=== PATIENT | female | born 1955 | race Two or more races ===

== ENCOUNTER 2019-02-20 01:03 | Inpatient (IN) | payer MEDICARE ==
[2019-02-20] VITALS (39 sets, daily range): BP systolic 84–112; BP diastolic 47–69
[~2019-02-20] VITALS: Ht 157.5 cm; Wt 84.6 kg
--- OUTSIDE RECORDS SUMMARY | 2019-02-20 01:05 | XMS REPORT ---
Author Author [facility] Address Unknown Phone Unavailable Care Team Providers Care Leave Specialist Name Role Phone Hal RYDER Unavailable Unavailable Problems This patient has no known problems. Allergies, Adverse Reactions, Alerts This patient has no known allergies or adverse reactions. Medications This patient has no known medications. Results Test Description Test Time Test Comments Text Results Atomic Results Result Comments CT ABDOMEN/PELVIS W [place] [address] Patient Name: BELIA BOONE MR #: [id number] : 1955 Age/Sex: 61/F Req #: [id number] Adm Physician: Ordered by: JEN RYDER MD Report #: [id number] Location: CT Room/Bed: Procedure: [id number] CT/CT ABDOMEN/PELVIS W Exam Date: 10/12/17 Exam Time: 1320 REPORT STATUS: Signed PROCEDURE: CT ABDOMEN AND PELVIS WITH CONTRAST TECHNIQUE: The abdomen and pelvis were scanned utilizing a multidetector helical scanner from the diaphragm to the lesser trochanter after the IV administration of 100 cc of Isovue 370 and the oral administration of Gastrografin. Coronal and sagittal multiplanar reformations were obtained. COMPARISON: None. INDICATIONS: ABDOMEN PAIN FINDINGS: LOWER THORAX: Subsegmental atelectasis in the dependent portions of the lower lobes. No pleural or pericardial effusion. HEPATOBILIARY: Subcentimeter hypoattenuating lesion in segment 8, too small to further characterize though likely to represent a small cyst. No additional focal hepatic lesions. Hepatic parenchyma is diffusely hypoattenuating compatible with steatosis. SPLEEN: No splen omegaly. Subcentimeter hyperattenuating lesion in the lower pole of the spleen may represent a flash filling hemangioma. PANCREAS: No focal masses or ductal dilatation. ADRENALS: No adrenal nodules. KIDNEYS/URETERS: No hydronephrosis, stones, or solid mass lesions. PELVIC ORGANS/BLADDER: Urinary bladder is incompletely distended but otherwise unremarkable. Uterus is anteflexed and appears normal. No adnexal mass. PERITONEUM / RETROPERITONEUM: No free air or fluid. LYMPH NODES: No pelvic sidewall, retroperitoneal, or mesenteric lymphadenopathy. VESSELS: The abdominal aorta, major branch vessels, and iliac arterial systems are patent with minimal atherosclerotic calcification along the infrarenal abdominal aorta. No aneurysmal dilatation. Incidental note of [id number] origins of the common hepatic artery and splenic artery from the abdominal aorta. The splenic artery gives rise to the left gastric artery.. Hepatic arterial anatomy is otherwise conventional. 2 renal arteries supply each kidney. Portal vein, splenic vein, and central superior mesenteric vein are patent. GI TRACT: The large bowel shows no evidence of distention or wall thickening. The sigmoid colon is markedly redundant. The appendix is normal. No right lower quadrant inflammatory change. Postsurgical changes in the proximal stomach likely related to sleeve gastrectomy. There is no small bowel dilatation to suggest obstruction. BONES AND SOFT TISSUES: No focal soft tissue abnormalities. No osseous destructive lesions. Postsurgical changes related to L4-L5 disc replacement and anterior fusion. Multilevel degenerative disc changes elsewhere within the lumbar spine. Very small (7 mm transverse neck) fat-containing umbilical hernia seen on series 2 image 42. IMPRESSION: No acute intra-abdominal or pelvic CT abnormalities. Very small (7 mm) fat-containing umbilical hernia. Hepatic steatosis. Dictated by: Lillian Carreno M.D. on 10/12/2017 at 14:20 Electronically approved by: Lillian Carreno M.D. on 10/12/2017 at 14:20 Dictated By: LILLIAN CARRENO MD 1420 Transcribed By: TRACIE on 10/12/17 1420 COPY TO: JEN RYDER MD
--- OUTSIDE RECORDS SUMMARY | 2019-02-20 01:05 | XMS REPORT | Clinical Summary ---
Author Author [facility] Address Unknown Phone Unavailable Care Team Providers Care Manufacturing Production Manager Name Role Phone Soheila Ingram MD PCP Allergies No Known Allergies Medications End Date Status Medication Sig Dispensed Refills Start Date Active buPROPion SR (WELLBUTRIN TK 1 T PO QAM 0 SR) 100 MG 12 hr tablet 8 Active ergocalciferol (VITAMIN TK 1 C PO 1 D2) 50,000 unit capsule WEEKLY 8 Active FLUoxetine (PROzac) 20 MG TK 1 T PO QD 0 tablet 8 Active sulfamethoxazole-trimetho TK 1 T PO BID 0 prim (BACTRIM DS) 800-160 8 mg per tablet Active thiothixene (NAVANE) 1 MG TK 3 CS PO QD 0 capsule 8 Active ARMOUR THYROID 60 mg TK 1 T PO QD 1 tablet 8 Active triamterene-hydrochloroth TK 1 C PO IN 1 iazid (DYAZIDE) 37.5-25 THE MORNING 8 mg per capsule 09/08/2018 oseltamivir (TAMIFLU) 75 Take 1 10 capsule 0 MG capsule capsule (75 8 mg total) by mouth every 12 (twelve) hours for 5 days. 10/03/2018 ondansetron ODT (ZOFRAN Take 1 tablet 12 tablet 0 ODT) 4 MG disintegrating (4 mg total) 8 tablet by mouth every 8 (eight) hours as needed for nausea for up to 30 days. 09/08/2018 acetaminophen-codeine Take 1-2 14 tablet 0 (TYLENOL WITH CODEINE #3) tablets by 8 300-30 mg per tablet mouth every 6 (six) hours as needed for mild pain or moderate pain for up to 5 days. Active Problems Not on file Encounters Care Team Description Date Type Specialty Soheila Ingram MD Essential hypertension, malignant; Droopy eyelid, left 01/06/2019 Hospital Procedural Cardiology Encounter Soheila Ingram MD Essential hypertension, malignant (Primary Dx); Droopy eyelid, left 01/05/2019 Transcribe Access Orders Aman Andrew MD Influenza (Primary Dx); Abdominal pain, unspecified abdominal location 09/03/2018 Emergency Emergency Medicine Soheila Ingram MD Breast cancer screening 08/02/2018 Hospital Radiology Encounter Soheila Ingram MD Breast cancer screening (Primary Dx) 07/06/2018 Transcribe Access Orders after 02/19/2018 Social History Date Tobacco Use Types Packs/Day Years Used Never Smoker Smokeless Tobacco: Never Used Alcohol Use Drinks/Week oz/Week Comments Yes 1 Glasses of 0.6 socially wine Sex Assigned at Date Recorded Not on file Industry Job Start Date Occupation Not on file Not on file Not on file Travel End Travel History Travel Start No recent travel history available. Last Filed Vital Signs Time Taken Vital Sign Reading 09/03/2018 4:00 PM CDT Blood Pressure 116/67 09/03/2018 3:30 PM CDT Pulse 104 09/03/2018 4:00 PM CDT Temperature 37.1 C (98.7 F) 09/03/2018 1:22 PM CDT Respiratory Rate 16 09/03/2018 4:00 PM CDT Oxygen Saturation 95% - Inhaled Oxygen - Concentration 09/03/2018 1:22 PM CDT Weight 69.9 kg (154 lb) 09/03/2018 1:22 PM CDT Height 157.5 cm (5' 2") 09/03/2018 1:22 PM CDT Body Mass Index 28.17 Plan of Treatment Health Maintenance Due Date Last Done Comments CERVICAL CANCER SCREENING 1977 COLON CANCER SCREENING 2006 SHINGLES VACCINES (#1) 2006 INFLUENZA VACCINE 06/08/2019 BREAST CANCER SCREENING 08/02/2020 08/02/2018, 07/28/2017, 07/06/2016 Procedures Comments Procedure Name Priority Date/Time Associated Diagnosis US CAROTID DUPLEX Routine 01/06/2019 Essential hypertension, BILATERAL 2:54 PM 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 malignant Droopy eyelid, left CT ABDOMEN PELVIS W STAT 09/03/2018 CONTRAST 3:20 PM CDT XR CHEST 1 VW PORTABLE STAT 09/03/2018 2:41 PM CDT ECG 12-LEAD STAT 09/03/2018 2:15 PM CDT LIPASE LEVEL STAT 09/03/2018 2:00 PM CDT TROPONIN STAT 09/03/2018 2:00 PM CDT CREATINE KINASE, TOTAL STAT 09/03/2018 (CPK) 2:00 PM CDT ESTIMATED GFR STAT 09/03/2018 2:00 PM CDT URINALYSIS SCREEN AND STAT 09/03/2018 MICROSCOPY, WITH REFLEX 2:00 PM CDT TO CULTURE COMPREHENSIVE METABOLIC STAT 09/03/2018 PANEL 2:00 PM CDT HC COMPLETE BLD COUNT STAT 09/03/2018 W/AUTO DIFF 2:00 PM CDT INFLUENZA ANTIGEN Routine 09/03/2018 2:00 PM CDT ECG ED PRELIMINARY Routine 09/03/2018 INTERPRETATION 1:28 PM CDT MAMMO BREAST SCREEN Routine 08/02/2018 Breast cancer screening TOMOSYNTHESIS BILATERAL 1:14 PM CDT after 02/19/2018 Results * Us carotid duplex (01/06/2019 2:54 PM HUMAN 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) L CCA Prox 27.3 cm/s cm/s [facility] L CCA Prox 119.4 cm/s cm/s [facility] R CCA Mid 18.60 cm/s cm/s [facility] R CCA Mid 59.20 cm/s cm/s [facility] L CCA Mid 27.30 cm/s cm/s [facility] L CCA Mid 70.90 cm/s cm/s [facility] L ECA Prox 13.10 cm/s cm/s [facility] L ECA Prox 53.7 cm/s cm/s [facility] R ECA Prox 14.20 cm/s cm/s [facility] L ICA Prox 21.7 cm/s cm/s [facility] L ICA Prox 54 cm/s cm/s [facility] R ICA Prox 24.1 cm/s cm/s [facility] R ICA Prox 58.1 cm/s cm/s [facility] L ICA/CCA Ratio 0.5 cm/s [facility] R ICA/CCA Ratio 0.8 cm/s [facility] L CCA Max 119.40 cm/s cm/s [facility] R CCA Max 76.80 cm/s cm/s [facility] L ICA Max 60.40 cm/s cm/s [facility] R ICA Max 60.50 cm/s cm/s [facility] R CCA Prox 19.4 cm/s cm/s [facility] R CCA Prox 76.8 cm/s cm/s [facility] R ICA Dist 20.9 cm/s cm/s [facility] R ICA Mid 24.8 cm/s cm/s [facility] L ICA Dist 19.1 cm/s cm/s [facility] L ICA DIST 46.9 cm/s cm/s [facility] R CCA Dist 28.5 cm/s cm/s [facility] R CCA Dist 69.1 cm/s cm/s [facility] R Vert Art 21.70 cm/s cm/s [facility] L CCA Dist 24.1 cm/s cm/s [facility] L CCA Dist 57 cm/s cm/s [facility] R ECA Prox 59.20 cm/s cm/s [facility] L ICA Mid 28.2 cm/s cm/s [facility] L ICA Mid 60.4 cm/s cm/s [facility] R ICA Dist 49.2 cm/s cm/s [facility] R ICA Mid 60.5 cm/s cm/s [facility] L Vert Art 10.90 cm/s cm/s [facility] L Vert Art 30.2 cm/s cm/s [facility] R Vert Art 48.80 cm/s cm/s [facility] Narrative Performed At [facility] There is minimal atheromatous plaque in the right carotid bulb associated with less than 50% stenosis. There is minimal atheromatous plaque in the left carotid bulb associated with less than 50% stenosis. Performing Organization Address City/State/Zipcode Phone Number JOSE DAVID [address] [place] [address] * CT Abdomen Pelvis W Contrast (09/03/2018 3:20 PM CDT) Narrative Performed At EXAMINATION: RADIANT CT ABDOMEN PELVIS W CONTRAST CLINICAL HISTORY: abd painplease use bariatric protocol TECHNIQUE: An emergency study was performed at [address] images were acquired using low-dose technique with iterative reconstructions and/or automatic exposure control to reduce radiation dose. Scans were obtained of the abdomen and pelvis with intravenous and oral contrast enhancement. Sagittal and coronal computerized reformatted images were also obtained. COMPARISON: None. ABDOMEN: Postoperative changes from anterior fusion at L4-5 are seen. Endplate sclerosis at this level is noted. A vacuum disc with disc space narrowing and osteophytosis is at L5-S1.Visualized portions of the chest are normal. The heart is normal in size. The liver, spleen, pancreas, gallbladder and biliary ducts are normal.The adrenal glands and kidneys are normal. The abdominal aorta and inferior vena cava are normal. There is no retroperitoneal adenopathy.Postoperative changes from sleeve gastrectomy are seen.Small bowel is not dilated.The appendix is not discretely identified. A moderate amount of stool is in the colon. A few scattered diverticula are in the distal colon. PELVIS: The bladder is mostly collapsed.The uterus and adnexal regions are normal.No fluid collections or masses are seen. IMPRESSION: Nonvisualization of the appendix which renders this study indeterminate for appendicitis. There are no secondary signs of appendicitis. Possible constipation. Diverticulosis without diverticulitis. Status post sleeve gastrectomy. [facility]-[id number] Procedure Note Interface, Radiology Results Incoming - 09/03/2018 3:53 PM CDT EXAMINATION: CT ABDOMEN PELVIS W CONTRAST CLINICAL HISTORY: abd pain please use bariatric protocol TECHNIQUE: An emergency study was performed at [address] images were acquired using low-dose technique with iterative reconstructions and/or automatic exposure control to reduce radiation dose. Scans were obtained of the abdomen and pelvis with intravenous and oral contrast enhancement. Sagittal and coronal computerized reformatted images were also obtained. COMPARISON: None. ABDOMEN: Postoperative changes from anterior fusion at L4-5 are seen. Endplate sclerosis at this level is noted. A vacuum disc with disc space narrowing and osteophytosis is at L5-S1. Visualized portions of the chest are normal. The heart is normal in size. The liver, spleen, pancreas, gallbladder and biliary ducts are normal. The adrenal glands and kidneys are normal. The abdominal aorta and inferior vena cava are normal. There is no retroperitoneal adenopathy. Postoperative changes from sleeve gastrectomy are seen. Small bowel is not dilated. The appendix is not discretely identified. A moderate amount of stool is in the colon. A few scattered diverticula are in the distal colon. PELVIS: The bladder is mostly collapsed. The uterus and adnexal regions are normal. No fluid collections or masses are seen. IMPRESSION: Nonvisualization of the appendix which renders this study indeterminate for appendicitis. There are no secondary signs of appendicitis. Possible constipation. Diverticulosis without diverticulitis. Status post sleeve gastrectomy. [id number] Performing Organization Address [facility] Phone Number [employer] [address] [place] [address] * XR Chest 1 Vw Portable (09/03/2018 2:41 PM CDT) Narrative Performed At EXAMINATION:XR CHEST 1 VW PORTABLE [facility] CLINICAL HISTORY:fever COMPARISON:None IMPRESSION: Unremarkable single view chest The lungs are clear. The heart is not enlarged. The bony structures are within normal limits. [id number] Procedure Note Hm Interface, Radiology Results Incoming - 09/03/2018 2:47 PM CDT EXAMINATION: XR CHEST 1 VW PORTABLE CLINICAL HISTORY: fever COMPARISON: None IMPRESSION: Unremarkable single view chest The lungs are clear. The heart is not enlarged. The bony structures are within normal limits. [id number] Performing Organization Address [facility] Phone Number [employer] [address] [place] [address] * ECG 12 lead (09/03/2018 2:15 PM CDT) Ventricular rate 93 [facility] Atrial rate 93 [facility] IN interval 114 [facility] QRSD interval 80 [facility] QT interval 338 [facility] QTC interval 420 [facility] P axis 1 43 [facility] QRS axis 1 53 [facility] T wave axis 69 [facility] EKG impression Normal sinus [facility] MUSE rhythm-Nonspecific ST and T wave abnormality-Abnormal ECG-No previous ECGs available- Performing Organization Address City/State/Zipcode Phone Number [facility] [address] [place] [address] * Urinalysis screen and microscopy, with reflex to culture (09/03/2018 2:00 PM CDT) Specimen site Clean catch [facility] DEPARTMENT OF PATHOLOGY AND GENOMIC MEDICINE Color, UA Klaudia [facility] DEPARTMENT OF PATHOLOGY AND GENOMIC MEDICINE Appearance, UA Clear [facility] DEPARTMENT OF PATHOLOGY AND GENOMIC MEDICINE Specific gravity, UA 1.030 1.001 - 1.035 [facility] DEPARTMENT OF PATHOLOGY AND GENOMIC MEDICINE pH, UA 6.0 5.0 - 8.5 [facility] DEPARTMENT OF PATHOLOGY AND GENOMIC MEDICINE Protein, UA 1+ (A) Negative [facility] DEPARTMENT OF PATHOLOGY AND GENOMIC MEDICINE Glucose, UA Negative Negative [facility] DEPARTMENT OF PATHOLOGY AND GENOMIC MEDICINE Ketones, UA Negative Negative [facility] DEPARTMENT OF PATHOLOGY AND GENOMIC MEDICINE Bilirubin, UA Negative Negative [facility] DEPARTMENT OF PATHOLOGY AND GENOMIC MEDICINE Blood, UA Negative Negative [facility] DEPARTMENT OF PATHOLOGY AND GENOMIC MEDICINE Nitrite, UA Negative Negative [facility] DEPARTMENT OF PATHOLOGY AND GENOMIC MEDICINE Urobilinogen, UA 4.0 (A) <2.0 [facility] DEPARTMENT OF PATHOLOGY AND GENOMIC MEDICINE Leukocyte esterase, UA Negative Negative [facility] DEPARTMENT OF PATHOLOGY AND GENOMIC MEDICINE Epithelial cells, UA Many /HPF [facility] DEPARTMENT OF PATHOLOGY AND GENOMIC MEDICINE Round epithelial cells, Few 0 - 1 /HPF [facility] DEPARTMENT OF UA PATHOLOGY AND GENOMIC MEDICINE WBC, UA 0-5 0 - 4 /HPF [facility] DEPARTMENT OF PATHOLOGY AND GENOMIC MEDICINE RBC, UA 11-20 (H) 0 - 5 /HPF [facility] DEPARTMENT OF PATHOLOGY AND GENOMIC MEDICINE Bacteria, UA Trace None seen [facility] DEPARTMENT OF PATHOLOGY AND GENOMIC MEDICINE Yeast, UA None seen [facility] DEPARTMENT OF PATHOLOGY AND GENOMIC MEDICINE Yeast with pseudohyphae, None seen [facility] PATHOLOGY AND GENOMIC MEDICINE Hyaline casts, UA 6-10 /LPF [facility] DEPARTMENT OF PATHOLOGY AND GENOMIC MEDICINE Specimen Urine Performing Organization Address City/State/Zipcode Phone Number [address] [place] [address] PATHOLOGY AND GENOMIC MEDICINE * Estimated GFR (09/03/2018 2:00 PM CDT) Estimated GFR 79 mL/min/1.73 m2 [facility] DEPARTMENT OF Comment: PATHOLOGY AND [employer] GENOMIC MEDICINE rpretation G1 >=90 Normal or high G2 60-89Mildly decreased [id number] Mildly to moderately decreased [id number] Moderately to severely decreased G4 15-29Severely decreased G5 <15Kidney failure The eGFR was calculated using the Chronic Kidney Disease Epidemiology Collaboration (CKD-EPI) equation. Interpretation is based on recommendations of the National Kidney Foundation-Kidney Disease Outcomes Quality Initiative (NKF-KDOQI) published in 2014. Specimen Plasma specimen Performing Organization Address [facility] Phone Number [address] [place] [address] PATHOLOGY AND [employer] MEDICINE * Troponin (09/03/2018 2:00 PM CDT) Troponin <0.300 0.000 - 0.300 ng/mL [facility] DEPARTMENT OF Comment: PATHOLOGY AND 0.30 - 1.49 GENOMIC MEDICINE ng/mlMay indicate increased risk of acute coronary syndrome. >=1.5 ng/ml Consistent with acute myocardial infarction. The diagnostic value of a single normal or non-diagnostic result is questionable.Serial samples at 2-6 hour intervals are required to rule out acute myocardial injury. Specimen Plasma specimen Performing Organization Address City/[facility] Phone Number [address] [place] [phone] PATHOLOGY AND GENOMIC MEDICINE * CBC with platelet and differential (09/03/2018 2:00 PM CDT) WBC 6.60 4.50 - 11.00 k/uL [facility] DEPARTMENT OF PATHOLOGY AND GENOMIC MEDICINE RBC 4.44 4.20 - 5.50 m/uL [facility] DEPARTMENT OF PATHOLOGY AND GENOMIC MEDICINE HGB 12.4 12.0 - 16.0 g/dL [facility] DEPARTMENT OF PATHOLOGY AND GENOMIC MEDICINE HCT 37.6 37.0 - 47.0 % [facility] DEPARTMENT OF PATHOLOGY AND GENOMIC MEDICINE MCV 84.7 82.0 - 100.0 fL [facility] DEPARTMENT OF PATHOLOGY AND GENOMIC MEDICINE MCH 27.9 27.0 - 34.0 pg [facility] DEPARTMENT OF PATHOLOGY AND GENOMIC MEDICINE MCHC 33.0 31.0 - 37.0 g/dL [facility] DEPARTMENT OF PATHOLOGY AND GENOMIC MEDICINE RDW - SD 44.0 37.0 - 55.0 fL [facility] DEPARTMENT OF PATHOLOGY AND GENOMIC MEDICINE MPV 11.5 8.8 - 13.2 fL [facility] DEPARTMENT OF PATHOLOGY AND GENOMIC MEDICINE Platelet count 179 150 - 400 k/uL [facility] DEPARTMENT OF PATHOLOGY AND GENOMIC MEDICINE Nucleated RBC 0.00 /100 WBC [facility] DEPARTMENT OF PATHOLOGY AND GENOMIC MEDICINE Neutrophils 73.6 (H) 39.0 - 69.0 % [facility] DEPARTMENT OF PATHOLOGY AND GENOMIC MEDICINE Lymphocytes 13.9 (L) 25.0 - 45.0 % [facility] DEPARTMENT OF PATHOLOGY AND GENOMIC MEDICINE Monocytes 5.9 0.0 - 10.0 % [facility] DEPARTMENT OF PATHOLOGY AND GENOMIC MEDICINE Eosinophils 4.8 0.0 - 5.0 % [facility] DEPARTMENT OF PATHOLOGY AND GENOMIC MEDICINE Basophils 0.0 0.0 - 1.0 % [facility] DEPARTMENT OF PATHOLOGY AND GENOMIC MEDICINE Specimen Blood Performing Organization Address [facility] Phone Number [address] [place] [address] PATHOLOGY AND GENOMIC MEDICINE * Influenza antigen (09/03/2018 2:00 PM CDT) Influenza antigen Positive for Influenza A [facility] DEPARTMENT OF antigen. PATHOLOGY AND [id number] GENOMIC MEDICINE TO ROCHELLE LEIJA (A) Comment: Specimen Information Specimen Source: Nares Specimen Site: Right Specimen Nares - Right Performing Organization Address [facility] Phone Number [address] [place] [address] PATHOLOGY AND GENOMIC MEDICINE * Lipase level (09/03/2018 2:00 PM CDT) Lipase 32 13 - 60 U/L [facility] DEPARTMENT OF PATHOLOGY AND GENOMIC MEDICINE Specimen Plasma specimen Performing Organization Address [facility] Phone Number [address] [place] [address] PATHOLOGY AND GENOMIC MEDICINE * Creatine kinase, total (CPK) (09/03/2018 2:00 PM CDT) Creatine kinase 75 26 - 192 U/L [facility] DEPARTMENT OF PATHOLOGY AND GENOMIC MEDICINE Specimen Plasma specimen Performing Organization Address [facility] Phone Number [address] [place] [address] PATHOLOGY AND GENOMIC MEDICINE * Comprehensive metabolic panel (09/03/2018 2:00 PM CDT) Sodium 132 (L) 135 - 148 mEq/L [facility] DEPARTMENT OF PATHOLOGY AND GENOMIC MEDICINE Potassium 4.3 3.5 - 5.0 mEq/L [facility] DEPARTMENT OF PATHOLOGY AND GENOMIC MEDICINE Chloride 95 (L) 98 - 112 mEq/L [facility] DEPARTMENT OF PATHOLOGY AND GENOMIC MEDICINE CO2 23 (L) 24 - 31 mEq/L [facility] DEPARTMENT OF PATHOLOGY AND GENOMIC MEDICINE Anion gap 14@ANIO 7 - 15 mEq/L [facility] DEPARTMENT OF PATHOLOGY AND GENOMIC MEDICINE BUN 10 8 - 23 mg/dL [facility] DEPARTMENT OF PATHOLOGY AND GENOMIC MEDICINE Creatinine 0.80 0.50 - 0.90 mg/dL [facility] DEPARTMENT OF PATHOLOGY AND GENOMIC MEDICINE Glucose 91 65 - 99 mg/dL [facility] DEPARTMENT OF PATHOLOGY AND GENOMIC MEDICINE Calcium 9.0 8.8 - 10.2 mg/dL [facility] DEPARTMENT OF PATHOLOGY AND GENOMIC MEDICINE Protein 7.0 6.3 - 8.3 g/dL [facility] DEPARTMENT OF Comment: PATHOLOGY AND GENOMIC MEDICINE 4.6-7.0 g/dL 1 week 4.4-7.6 g/dL 7 months-1year 5.1-7.3 g/dL 1-2 years5.6-7 .5 g/dL >3 years6.0-8 .0 g/dL 18-150 6.3-8.3 g/dL Albumin 3.8 3.5 - 5.0 g/dL [facility] DEPARTMENT OF PATHOLOGY AND GENOMIC MEDICINE A/G ratio 1.2 0.7 - 3.8 [facility] DEPARTMENT OF PATHOLOGY AND GENOMIC MEDICINE Alkaline phosphatase 68 35 - 104 U/L [facility] DEPARTMENT OF PATHOLOGY AND GENOMIC MEDICINE AST 37 (H) 10 - 35 U/L [facility] DEPARTMENT OF PATHOLOGY AND GENOMIC MEDICINE ALT 28 5 - 50 U/L [facility] DEPARTMENT OF PATHOLOGY AND GENOMIC MEDICINE Total bilirubin 0.4 0.0 - 1.2 mg/dL [facility] DEPARTMENT OF PATHOLOGY AND GENOMIC MEDICINE Specimen Plasma specimen Performing Organization Address City/State/Zipcode Phone Number [facility] [address] [place] [address] PATHOLOGY AND GENOMIC MEDICINE * ECG ED Preliminary Interpretation - NOT AN ORDER (09/03/2018 1:28 PM CDT) Narrative Performed At Aman Andrew MD 09/04/20186:05 AM ECG ED Preliminary Interpretation - Not an Order Performed by: LILLIAN PORTER Authorized by: AMAN ANDREW ECG reviewed by ED Physician in the absence of a creative designer: yes Interpretation: Interpretation: normal Rate: ECG rate:93 ECG rate assessment: normal Rhythm: Rhythm: sinus rhythm Ectopy: Ectopy: none QRS: QRS axis:Normal QRS intervals:Normal Conduction: Conduction: normal ST segments: ST segments:Non-specific T waves: T waves: non-specific * Mammo Breast Screen Tomosynthesis Bilateral (08/02/2018 1:14 PM CDT) Narrative Performed At PROCEDURE: MAMMO BREAST SCREEN TOMOSYNTHESIS BILATERAL [facility] Computer aided detection was utilized for the interpretation of the digital bilateral screening mammography with tomosynthesis. COMPARISON: 07/28/2017-07/06/2016 CLINICAL HISTORY: Screening mammogram.The patient has no current breast complaints. DENSITY: The breast tissue is heterogeneously dense, which may obscure small masses. There is a benign-appearing calcification in the left breast. There are a few scattered benign-appearing coarse calcifications in the right breast. No new significant masses, calcifications, or other findings are seen in either breast. IMPRESSION:No mammographic evidence of malignancy. RECOMMENDATION: Comparison with physical exam and annual screening mammography. BI-RADS 2: BENIGN This facility is accredited by the [employer] for Mammography. A negative x-ray report should not delay biopsy if a dominant or clinically suspicious mass is present.Not all cancers are identified by x-ray. [id number] Performing Organization Address City/State/Zipcode Phone Number [facility] [address] [place] [address] after 02/19/2018 Insurance Payer Benefit Subscriber ID Type Phone Address Plan / Group [employer]NA MEDICARE HUMANA xxxxxxxxx PPO MEDICARE PPO/PFFS/[facility] Advance Directives Patient has advance care planning documents on file. For more information, davey estrada contact: Lito Seay [address] [place] [address]
[2019-02-20] MEDS ORDERED: ONDANSETRON HCL INJ 2MG/ML 2ML 2 MG/ML VIAL IV STA (01:30)
[2019-02-20] MEDS ORDERED: SODIUM CHLORIDE 0.9% 1000ML 1,000 ML IV STA ×3 (01:30→04:02)
[2019-02-20 01:58] LABS: BASOPHILS % 0.1 % (0.0-1.0); EOSINOPHILS % 0.1 % (0.0-6.0); HEMATOCRIT 41.5 % (34.2-44.1); HEMOGLOBIN 13.4 g/dL (12.0-16.0); LYMPHOCYTES # (AUTO) 0.9 (1.0-3.2); LYMPHOCYTES % 6.8 % (18.0-39.1); MEAN CORPUSCULAR HEMOGLOBIN 28.2 pg (28-32); MEAN CORPUSCULAR HGB CONC 32.3 g/dL (31-35); MEAN CORPUSCULAR VOLUME 87.2 fL (81-99); MONOCYTES # (AUTO) 0.1 (0.2-0.8); MONOCYTES % 0.6 % (4.4-11.3); NEUTROPHILS # (AUTO) 11.6 (2.1-6.9); NEUTROPHILS % 91.6 % (38.7-80.0); PLATELET COUNT 266 x10e3/uL (140-360); RED BLOOD COUNT 4.76 x10e6/uL (3.6-5.1); RED CELL DISTRIBUTION WIDTH 14.5 % (11.7-14.4)
[2019-02-20 02:07] LABS: CLARITY,URINE CLOUDY (CLEAR); COLOR,URINE YELLOW (YELLOW); LEUKOCYTE ESTERASE ,URINE 2+ (NEGATIVE)
[2019-02-20 02:08] LABS: BILIRUBIN,URINE NEGATIVE (NEGATIVE); KETONES,URINE NEGATIVE (NEGATIVE); NITRITE,URINE NEGATIVE (NEGATIVE); PROTEIN,URINE DIPSTICK NEGATIVE (NEGATIVE); URINE UROBILINOGEN 0.2 mg/dL (0.2 - 1)
[2019-02-20 02:12] LABS: INR 0.95; PARTIAL THROMBOPLASTIN TIME 26.8 seconds (23.8-35.5); PROTHROMBIN TIME 13.2 seconds (11.9-14.5)
[2019-02-20 02:17] LABS: BACTERIA,URINE MODERATE /HPF; EPITHELIAL CELLS,URINE FEW /LPF; WBC,URINE (MAN) >50 /HPF (0-5)
[2019-02-20 02:22] LABS: ALANINE AMINOTRANSFERASE 43 IU/L (0-55); ALBUMIN 3.5 g/dL (3.5-5.0); ALBUMIN/GLOBULIN RATIO 1.1 (0.8-2.0); ALKALINE PHOSPHATASE 71 IU/L (40-150); ANION GAP 13.9 mmol/L (8-16); CALCIUM 9.5 mg/dL (8.4-10.2); CARBON DIOXIDE 27 mmol/L (22-29); CHLORIDE 104 mmol/L (98-107); CREATINE KINASE 44 IU/L (29-168); CREATININE, SERUM 0.83 mg/dL (0.57-1.11); EST GLOMERULAR FILTRATION RATE > 60 ML/MIN (60-); GLUCOSE 107 mg/dL (74-118); MAGNESIUM 2.2 MG/DL (1.3-2.1); SODIUM 142 mmol/L (136-145)
[2019-02-20 02:26] LABS: POTASSIUM 2.9 mmol/L (3.5-5.1)
--- NOTE | 2019-02-20 02:28 | NUR ---
AND RN NOTIFIED OF CRITICAL LAB VALUE, POTASSIUM 2.9.
[2019-02-20 02:42] LABS: BLOOD UREA NITROGEN 20 mg/dL (7-26); BUN/CREATININE RATIO 24 (6-25)
[2019-02-20] MEDS ORDERED: VANCOMYCIN 1GM/NS 250 ML 250 ML IV ONE (02:45)
[2019-02-20] MEDS ORDERED: MEROPENEM 1GRAM 1 GM in SODIUM CHLORIDE 0.9% 100 ML 100 ML IV SCH (03:00)
[2019-02-20] MEDS: POTASSIUM CHLORIDE 10MEQ/100ML 100 ML IV SCH ×4 (03:03→05:45)
[2019-02-20] MEDS ORDERED: HYDROCORTISONE SOD SUCCINATE 100 MG VIAL IV ONE (03:15)
[2019-02-20 03:33] LABS: INFLUENZAE A&B ANTIGEN (RAPID) NEGATIVE (NEGATIVE); STREPTOCOCCUS GRP A ANTIGEN NEGATIVE (NEGATIVE)
[2019-02-20] MEDS ORDERED: ONDANSETRON HCL INJ 2MG/ML 2ML 2 MG/ML VIAL IV PRN (04:00)
--- OUTSIDE RECORDS SUMMARY | 2019-02-20 04:11 | XMS REPORT | Clinical Summary ---
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 Status post sleeve gastrectomy. [facility]-[id number] Procedure Note Interface, Radiology Results Incoming - [...] Diverticulosis without diverticulitis. Status post sleeve gastrectomy. [id number] Performing Organization Address [facility] Phone Number [employer] [address] [place] [address] * XR Chest 1 Vw Portable (09/03/2018 2:41 PM CDT) Narrative Performed At EXAMINATION:XR CHEST 1 VW PORTABLE RADIANT CLINICAL HISTORY:fever COMPARISON:None IMPRESSION: Unremarkable single view chest The lungs are clear. The heart is not enlarged. The bony structures are within normal limits. [id number] Procedure Note Hm Interface, Radiology Results Incoming - 09/03/2018 2:47 PM CDT EXAMINATION: XR CHEST 1 VW PORTABLE CLINICAL HISTORY: fever COMPARISON: None IMPRESSION: Unremarkable single view chest The lungs are clear. The heart is not enlarged. The bony structures are within normal limits. [facility][id number] Performing Organization Address [facility] Phone Number [employer] [address] [place] [address] * ECG 12 lead (09/03/2018 2:15 PM CDT) Ventricular rate 93 [facility]USE Atrial rate 93 [facility] M[facility] OH interval 114 [facility] QRSD interval 80 [facility] QT interval 338 [facility] QTC interval 420 [facility] P axis 1 43 [facility] M[facility] QRS axis 1 53 [facility] M[facility] T wave axis 69 [facility] M[facility] EKG impression Normal sinus [facility] MUSE rhythm-Nonspecific ST and T wave abnormality-Abnormal ECG-No previous ECGs available- Performing Organization Address City/State/Zipcode Phone Number [facility] [address] [place] [address] * Urinalysis screen and microscopy, with reflex to culture (09/03/2018 2:00 PM CDT) Specimen site Clean catch [facility] DEPARTMENT OF PATHOLOGY AND GENOMIC MEDICINE Color, UA Klaudia [facility] DEPARTMENT OF PATHOLOGY AND GENOMIC MEDICINE Appearance, UA Clear [facility] DEPARTMENT OF PATHOLOGY AND GENOMIC MEDICINE Specific gravity, UA 1.030 1.001 - 1.035 [facility] DEPARTMENT OF PATHOLOGY AND GENOMIC MEDICINE pH, UA 6.0 5.0 - 8.5 [facility] DEPARTMENT OF PATHOLOGY AND GENOMIC MEDICINE Protein, UA 1+ (A) Negative [facility] DEPARTMENT OF PATHOLOGY AND GENOMIC MEDICINE Glucose, UA Negative Negative [facility] DEPARTMENT OF PATHOLOGY AND GENOMIC MEDICINE Ketones, UA Negative Negative [facility] DEPARTMENT OF PATHOLOGY AND GENOMIC MEDICINE Bilirubin, UA Negative Negative [facility] DEPARTMENT OF PATHOLOGY AND GENOMIC MEDICINE Blood, UA Negative Negative [facility] DEPARTMENT OF PATHOLOGY AND GENOMIC MEDICINE Nitrite, UA Negative Negative [facility] DEPARTMENT OF PATHOLOGY AND GENOMIC MEDICINE Urobilinogen, UA 4.0 (A) <2.0 [facility] DEPARTMENT OF PATHOLOGY AND GENOMIC MEDICINE Leukocyte esterase, UA Negative Negative [facility] DEPARTMENT OF PATHOLOGY AND GENOMIC MEDICINE Epithelial cells, UA Many /HPF [facility] DEPARTMENT OF PATHOLOGY AND GENOMIC MEDICINE Round epithelial cells, Few 0 - 1 /HPF [facility] DEPARTMENT OF UA PATHOLOGY AND GENOMIC MEDICINE WBC, UA 0-5 0 - 4 /HPF [facility] DEPARTMENT OF PATHOLOGY AND GENOMIC MEDICINE RBC, UA 11-20 (H) 0 - 5 /HPF [facility] DEPARTMENT OF PATHOLOGY AND GENOMIC MEDICINE Bacteria, UA Trace None seen [facility] DEPARTMENT OF PATHOLOGY AND GENOMIC MEDICINE Yeast, UA None seen [facility] DEPARTMENT OF PATHOLOGY AND GENOMIC MEDICINE Yeast with pseudohyphae, None seen [facility] PATHOLOGY AND GENOMIC MEDICINE Hyaline casts, UA 6-10 /LPF [facility] DEPARTMENT OF PATHOLOGY AND GENOMIC MEDICINE Specimen Urine Performing Organization Address City/State/Zipcode Phone Number [address] [place] [address] PATHOLOGY AND GENOMIC MEDICINE * Estimated GFR (09/03/2018 2:00 PM CDT) Estimated GFR 79 mL/min/1.73 m2 [facility] DEPARTMENT OF Comment: PATHOLOGY AND [employer]atergoryUnitsInte GENOMIC MEDICINE rpretation G1 >=90 Normal or high G2 60-89Mildly decreased [id number] Mildly to moderately decreased [id number] Moderately to severely decreased G4 15-29Severely decreased G5 <15Kidney failure The eGFR was calculated using the Chronic Kidney Disease Epidemiology Collaboration (CKD-EPI) equation. Interpretation is based on recommendations of the National Kidney Foundation-Kidney Disease Outcomes Quality Initiative (NKF-KDOQI) published in 2014. Specimen Plasma specimen Performing Organization Address [facility] Phone Number [address] [place] [address] PATHOLOGY AND [employer] MEDICINE * Troponin (09/03/2018 2:00 PM CDT) Troponin <0.300 0.000 - 0.300 ng/mL [facility] DEPARTMENT OF Comment: PATHOLOGY AND 0.30 - 1.49 GENOMIC MEDICINE ng/mlMay indicate increased risk of acute coronary syndrome. >=1.5 ng/ml Consistent with acute myocardial infarction. The diagnostic value of a single normal or non-diagnostic result is questionable.Serial samples at 2-6 hour intervals are required to rule out acute myocardial injury. Specimen Plasma specimen Performing Organization Address City/[facility] Phone Number [address] [place] [phone] PATHOLOGY AND GENOMIC MEDICINE * CBC with platelet and differential (09/03/2018 2:00 PM CDT) WBC 6.60 4.50 - 11.00 k/uL [facility] DEPARTMENT OF PATHOLOGY AND GENOMIC MEDICINE RBC 4.44 4.20 - 5.50 m/uL [facility] DEPARTMENT OF PATHOLOGY AND GENOMIC MEDICINE HGB 12.4 12.0 - 16.0 g/dL [facility] DEPARTMENT OF PATHOLOGY AND GENOMIC MEDICINE HCT 37.6 37.0 - 47.0 % [facility] DEPARTMENT OF PATHOLOGY AND GENOMIC MEDICINE MCV 84.7 82.0 - 100.0 fL [facility] DEPARTMENT OF PATHOLOGY AND GENOMIC MEDICINE MCH 27.9 27.0 - 34.0 pg [facility] DEPARTMENT OF PATHOLOGY AND GENOMIC MEDICINE MCHC 33.0 31.0 - 37.0 g/dL [facility] DEPARTMENT OF PATHOLOGY AND GENOMIC MEDICINE RDW - SD 44.0 37.0 - 55.0 fL [facility] DEPARTMENT OF PATHOLOGY AND GENOMIC MEDICINE MPV 11.5 8.8 - 13.2 fL [facility] DEPARTMENT OF PATHOLOGY AND GENOMIC MEDICINE Platelet count 179 150 - 400 k/uL [facility] DEPARTMENT OF PATHOLOGY AND GENOMIC MEDICINE Nucleated RBC 0.00 /100 WBC [facility] DEPARTMENT OF PATHOLOGY AND GENOMIC MEDICINE Neutrophils 73.6 (H) 39.0 - 69.0 % [facility] DEPARTMENT OF PATHOLOGY AND GENOMIC MEDICINE Lymphocytes 13.9 (L) 25.0 - 45.0 % [facility] DEPARTMENT OF PATHOLOGY AND GENOMIC MEDICINE Monocytes 5.9 0.0 - 10.0 % [facility] DEPARTMENT OF PATHOLOGY AND GENOMIC MEDICINE Eosinophils 4.8 0.0 - 5.0 % [facility] DEPARTMENT OF PATHOLOGY AND GENOMIC MEDICINE Basophils 0.0 0.0 - 1.0 % [facility] DEPARTMENT OF PATHOLOGY AND GENOMIC MEDICINE Specimen Blood Performing Organization Address [facility] Phone Number [address] [place] [address] PATHOLOGY AND GENOMIC MEDICINE * Influenza antigen (09/03/2018 2:00 PM CDT) Influenza antigen Positive for Influenza A [facility] DEPARTMENT OF antigen. PATHOLOGY AND [id number] GENOMIC MEDICINE TO ROCHELLE LEIJA (A) Comment: Specimen Information Specimen Source: Nares Specimen Site: Right Specimen Nares - Right Performing Organization Address [facility] Phone Number [address] [place] [address] PATHOLOGY AND GENOMIC MEDICINE * Lipase level (09/03/2018 2:00 PM CDT) Lipase 32 13 - 60 U/L [facility] DEPARTMENT OF PATHOLOGY AND GENOMIC MEDICINE Specimen Plasma specimen Performing Organization Address [facility] Phone Number [address] [place] [address] PATHOLOGY AND GENOMIC MEDICINE * Creatine kinase, total (CPK) (09/03/2018 2:00 PM CDT) Creatine kinase 75 26 - 192 U/L [facility] DEPARTMENT OF PATHOLOGY AND GENOMIC MEDICINE Specimen Plasma specimen Performing Organization Address [facility] Phone Number [address] [place] [address] PATHOLOGY AND GENOMIC MEDICINE * Comprehensive metabolic panel (09/03/2018 2:00 PM CDT) Sodium 132 (L) 135 - 148 mEq/L [facility] DEPARTMENT OF PATHOLOGY AND GENOMIC MEDICINE Potassium 4.3 3.5 - 5.0 mEq/L [facility] DEPARTMENT OF PATHOLOGY AND GENOMIC MEDICINE Chloride 95 (L) 98 - 112 mEq/L [facility] DEPARTMENT OF PATHOLOGY AND GENOMIC MEDICINE CO2 23 (L) 24 - 31 mEq/L [facility] DEPARTMENT OF PATHOLOGY AND GENOMIC MEDICINE Anion gap 14@ANIO 7 - 15 mEq/L [facility] DEPARTMENT OF PATHOLOGY AND GENOMIC MEDICINE BUN 10 8 - 23 mg/dL [facility] DEPARTMENT OF PATHOLOGY AND GENOMIC MEDICINE Creatinine 0.80 0.50 - 0.90 mg/dL [facility] DEPARTMENT OF PATHOLOGY AND GENOMIC MEDICINE Glucose 91 65 - 99 mg/dL [facility] DEPARTMENT OF PATHOLOGY AND GENOMIC MEDICINE Calcium 9.0 8.8 - 10.2 mg/dL [facility] DEPARTMENT OF PATHOLOGY AND GENOMIC MEDICINE Protein 7.0 6.3 - 8.3 g/dL [facility] DEPARTMENT OF Comment: PATHOLOGY AND GENOMIC MEDICINE 4.6-7.0 g/dL 1 week 4.4-7.6 g/dL 7 months-1year 5.1-7.3 g/dL 1-2 years5.6-7 .5 g/dL >3 years6.0-8 .0 g/dL 18-150 6.3-8.3 g/dL Albumin 3.8 3.5 - 5.0 g/dL [facility] DEPARTMENT OF PATHOLOGY AND GENOMIC MEDICINE A/G ratio 1.2 0.7 - 3.8 [facility] DEPARTMENT OF PATHOLOGY AND GENOMIC MEDICINE Alkaline phosphatase 68 35 - 104 U/L [facility] DEPARTMENT OF PATHOLOGY AND GENOMIC MEDICINE AST 37 (H) 10 - 35 U/L [facility] DEPARTMENT OF PATHOLOGY AND GENOMIC MEDICINE ALT 28 5 - 50 U/L [facility] DEPARTMENT OF PATHOLOGY AND GENOMIC MEDICINE Total bilirubin 0.4 0.0 - 1.2 mg/dL [facility] DEPARTMENT OF PATHOLOGY AND GENOMIC MEDICINE Specimen Plasma specimen Performing Organization Address City/State/Zipcode Phone Number [place] [address] [place] [address] PATHOLOGY AND GENOMIC MEDICINE * ECG ED Preliminary Interpretation - NOT AN ORDER (09/03/2018 1:28 PM CDT) Narrative Performed At Aman Andrew MD 09/04/20186:05 AM ECG ED Preliminary Interpretation - Not an Order Performed by: LILLIAN PORTER Authorized by: AMAN ANDREW ECG reviewed by ED Physician in the absence of a digital marketer: yes Interpretation: Interpretation: normal Rate: ECG rate:93 [...] BENIGN This facility is accredited by the [employer] for Mammography. A negative x-ray report should not delay biopsy if a dominant or clinically suspicious mass is present.Not all cancers are identified by x-ray. [id number] Performing Organization Address City/State/Zipcode Phone Number [facility] [address] [place] [address] after 02/19/2018 Insurance Payer Benefit Subscriber ID Type Phone Address Plan / Group HUMANA MEDICARE HUMANA xxxxxxxxx PPO MEDICARE PPO/PFFS/E [facility] Advance Directives Patient has advance care planning documents on file. For more information, davey estrada contact: Lito Seay [address] [place] [address]
--- NOTE | 2019-02-20 04:23 | NUR ---
POTASSIUM BAG #2 [id number] IV STARTED AT 100CC/HR
[2019-02-20] MEDS ORDERED: MEROPENEM 1 GM VIAL ONE (04:36)
[2019-02-20] MEDS ORDERED: SODIUM CHLORIDE 0.9% 100 ML ONE (04:39)
--- NOTE | 2019-02-20 04:44 | Diagnostic Imaging Report ---
EXAMINATION: CHEST SINGLE (PORTABLE) INDICATION: ^CHILLS, ACHY COMPARISON: None FINDINGS: AP view TUBES and LINES: None. LUNGS: Lungs are well inflated. There are bibasilar atelectasis. There is no evidence of pneumonia or pulmonary edema. PLEURA: No pleural effusion or pneumothorax. HEART AND MEDIASTINUM: The cardiomediastinal silhouette is unremarkable. BONES AND SOFT TISSUES: No acute osseous lesion. Soft tissues are unremarkable. UPPER ABDOMEN: No free air under the diaphragm. IMPRESSION: No acute thoracic abnormality. Signed by: Dr. Bradley Padron M.D. on 02/20/2019 4:41 AM
[2019-02-20] MEDS: SODIUM CHLORIDE 0.9% 1000ML 1,000 ML IV SCH ×3 (04:52→17:31)
--- NOTE | 2019-02-20 05:40 | NUR ---
THIRD POTASSIUM BAG HUNG
--- NOTE | 2019-02-20 06:08 | NUR ---
NOTIFIED DR BACA OF LACTIC ACID, DR BACA HAD LONG DISCUSSION WITH PATIENT AT BEDSIDE REGARDING A CENTRAL LINE INSERTION. However map has been above 65 and lactic acid is trending down, patient is alert and orientated, no signs of hypoperfusion, patient voided a total of 4 times, and all extremities are warm, color is appropiate for race. The decision was made by dr baca to hold off on central line insertion at this time. Patient is verbalizing needs, making needs known. In addition, patient verbalizing feeling better than when she came in. Close monitoring done by this nurse. Dr Baca and this nurse visited bedside multiple times through the night to assess patient.
[2019-02-20] MEDS: FAMOTIDINE 20 MG/2 ML VIAL IV SCH ×2 (06:10→15:36)
--- NOTE | 2019-02-20 06:52 | NUR ---
SAY CALLED TO PHARMACY, WILL BRING POTASSIUM CHOLORIDE IV
--- NOTE | 2019-02-20 07:09 | NUR ---
ASSUMED CARE AT THIS TIME. PATIENT AWAKE AND ALERT SITTING IN BED. RESP EVEN AND UNLABORED. SKIN WARM AND DRY. NO SIGNS OF ACUTE DISTRESS NOTED AT THIS TIME. DENIES ANY C/O AT THIS TIME. EDUCATED PATIENT AND FAMILY ON THE CURRENT PLAN OF CARE,VERBALIZED UNDERSTANDING.
--- NOTE | 2019-02-20 07:09 | NUR ---
walking rounds and bedside report with donna hughes
--- NOTE | 2019-02-20 07:11 | NUR ---
patient will get to bring home medications from home for medication reconciliation, patient does not remember dosing.
--- NOTE | 2019-02-20 07:47 | NUR ---
INFOMRED CONSENT SIGNED FOR PICC LINE PLACEMENT. PATIENT GIVEN OPPORTUNITY TO ASK QUESTIONS. DENIES ANY QUESTIONS OR CONCERNS AT THIS TIME. EDUCATED PATIENT ON THE RISKS AND BENEFITS OF PROCEDURE,VERBALIZED UNDERSTANDING.
[2019-02-20] MEDS ORDERED: POTASSIUM CHLORIDE 10MEQ/100ML 100 ML IV SCH (08:15)
--- NOTE | 2019-02-20 09:12 | NUR ---
PATIENT LAYING IN BED WITH EYES CLOSED. SKIN WARM AND DRY. RESP EVEN AND UNLABORED. NO SIGNS OF ACUTE DISTRESS NOTED AT THIS TIME.
--- NOTE | 2019-02-20 09:30 | NUR ---
RAPID RESPONSE CALLED NOTIFIED DR JIMENEZ BP 72/43, P 92 AFTER 3L NS AWAITING PICC LINE PLACEMENT
--- NOTE | 2019-02-20 09:40 | NUR ---
DR JIMENEZ AT BEDSIDE EDUCATING PATIENT ON NEED EMERGENT CENTRAL LINE PLACEMENT FOR VASOPRESSORS, EDUCATED ON RISKS AND BENEFITS OF PROCEDURE,VERBALIZED UNDERSTANDING. PATIENT BEING PREPPED FOR CENTRAL LINE.
--- NOTE | 2019-02-20 09:44 | NUR ---
DR JIMENEZ AT BEDSIDE FOR CENTRAL LINE PLACEMENT.
[2019-02-20 10:01] LABS: CREATINE KINASE 52 IU/L (29-168)
--- NOTE | 2019-02-20 10:30 | NUR ---
XRAY AT BEDSIDE FOR CXR POST CENTRAL LINE PLACEMENT.
[2019-02-20] MEDS: NOREPINEPHRINE INJ 4MG/4ML 8 MG in DEXTROSE 5% 250ML 250 ML IV SCH ×2 (10:37→20:45)
--- NOTE | 2019-02-20 11:00 | NUR ---
PATIENT TRANSPORTED TO ICU ROOM 191 VIA STRETCHER WITH PORTABLE SCRIPT SUPERVISOR,NIBP AND SPO2. NO SIGNS OF ACUTE DISTRESS NOTED AT THIS TIME.
--- NOTE | 2019-02-20 11:11 | NUR ---
CENTRAL LINE OK TO USE PER DR JIMENEZ. WILL NOTIFY ASHLEYICU NURSE.
--- NOTE | 2019-02-20 11:22 | NUR ---
left message on voicemail regarding new consult with Dr Escobedo
[2019-02-20] MEDS ORDERED: ACETAMINOPHEN 325 MG TAB ONE (11:39)
[2019-02-20] MEDS: ACETAMINOPHEN 325 MG TAB PO PRN ×2 (11:42→15:42)
--- NOTE | 2019-02-20 11:57 | Diagnostic Imaging Report ---
EXAMINATION: CHEST XRAY LINE PLACEMENT INDICATION: Central line placement. COMPARISON: None FINDINGS: TUBES and LINES: Interval placement of a right subclavian line with catheter tip terminating in the expected location of the mid SVC. LUNGS: Low lung volumes. Patchy bibasilar opacities, likely atelectasis. No evidence of lobar consolidation or pulmonary edema. PLEURA: No pleural effusion or pneumothorax. HEART AND MEDIASTINUM: The cardiomediastinal silhouette is unremarkable. BONES AND SOFT TISSUES: No acute osseous abdomen. UPPER ABDOMEN: No free air under the diaphragm. IMPRESSION: Interval placement of a right subclavian line with catheter tip terminating in the expected location of the mid SVC. No evidence of pneumothorax. Signed by: Dr. Phani Nicolas MD on 02/20/2019 11:54 AM
[2019-02-20] MEDS: MEROPENEM 1GM 100 ML IV SCH ×2 (12:04→20:22)
[2019-02-20 12:27] LABS: BASOPHILS % 0.1 % (0.0-1.0); HEMATOCRIT 33.4 % (34.2-44.1); LYMPHOCYTES # (AUTO) 0.9 (1.0-3.2); LYMPHOCYTES % 4.1 % (18.0-39.1); MEAN CORPUSCULAR HEMOGLOBIN 28.4 pg (28-32); MEAN CORPUSCULAR HGB CONC 32.9 g/dL (31-35); MEAN CORPUSCULAR VOLUME 86.1 fL (81-99); MONOCYTES % 4.3 % (4.4-11.3); NEUTROPHILS # (AUTO) 20.1 (2.1-6.9); NEUTROPHILS % 90.7 % (38.7-80.0); PLATELET COUNT 258 x10e3/uL (140-360); RED BLOOD COUNT 3.88 x10e6/uL (3.6-5.1); RED CELL DISTRIBUTION WIDTH 14.7 % (11.7-14.4)
[2019-02-20] MEDS ORDERED: BUPROPION HCL100 MG PO (12:35)
[2019-02-20] MEDS ORDERED: ABILIFY5 MG PO (12:36)
[2019-02-20] MEDS ORDERED: ATORVASTATIN CA20 MG PO (12:36)
[2019-02-20] MEDS ORDERED: ARMOUR THYROID60 MG PO (12:36)
[2019-02-20 12:45] LABS: ALANINE AMINOTRANSFERASE 33 IU/L (0-55); ALBUMIN 2.7 g/dL (3.5-5.0); ALKALINE PHOSPHATASE 51 IU/L (40-150); ANION GAP 9.5 mmol/L (8-16); BLOOD UREA NITROGEN 12 mg/dL (7-26); BUN/CREATININE RATIO 17 (6-25); CALCIUM 7.8 mg/dL (8.4-10.2); CARBON DIOXIDE 21 mmol/L (22-29); CHLORIDE 108 mmol/L (98-107); EST GLOMERULAR FILTRATION RATE > 60 ML/MIN (60-); GLUCOSE 145 mg/dL (74-118); POTASSIUM 3.5 mmol/L (3.5-5.1); SODIUM 135 mmol/L (136-145)
--- NOTE | 2019-02-20 12:51 | History and Physical ---
CHIEF COMPLAINT: Dysuria, fever and low blood pressure. HISTORY OF PRESENT ILLNESS: The patient is a 63-year-old woman. She has a history of prior bariatric surgery. She has a history of recurrent kidney infections. She notes dysuria for the past 2 to 3 days. She also reports some chills at home. She had some nausea and malaise. The patient came to the emergency department and was found to have pyuria along with low blood pressure. She received IV fluids along with antibiotics, but continued to have some hypotension. She was subsequently started on Levophed. PAST SURGICAL HISTORY: 1. Status post bariatric surgery. 2. History of prior C-sections. 3. History of lumbar spine surgery. SOCIAL HISTORY: The patient is not an active smoker. She is not an active drinker. FAMILY HISTORY: Noncontributory. REVIEW OF SYSTEMS: The patient has no fevers. The patient is not complaining of headache. She notes some pain near her central line site. She has no neck pain. She denies dyspnea or cough. She has no chest pain. She has no nausea or vomiting. She denies any abdominal pain. She does not complain of back pain. There is no leg swelling. She has no focal neurological complaints. PHYSICAL EXAMINATION: VITAL SIGNS: Blood pressure is now 90/63 on Levophed at 10 mcg. Her T-max is 99.5. HEENT: Shows no facial swelling or erythema. The nasal mucosa is normal. There is a subclavian line in place. The site looks clean. There is no drainage. CARDIAC: Reveals a regular rate and rhythm with a normal S1, S2. LUNGS: Auscultation of lungs reveals clear breath sounds bilaterally. There is no wheezing. ABDOMEN: Soft, nontender. There is no rebound or guarding. EXTREMITIES: Show no leg edema or calf tenderness. There is no cyanosis or clubbing. SKIN: Shows no rashes. NEUROLOGICAL: Shows no focal abnormalities. LABORATORY DATA: The potassium is 2.9, carbon dioxide is 27 and the BUN to creatinine ratio is normal. The lactic acid was increased to 24. White blood cell count is 12.6 and hemoglobin is 13.4. The platelet count is 266. RADIOGRAPHIC DATA: Chest x-ray shows no active disease. IMPRESSION: 1. Pyelonephritis with severe sepsis, present on admission. 2. Hypokalemia. 3. History of prior bariatric surgery. PLAN: 1. Continue broad-spectrum antibiotics and await culture results. 2. Infectious Disease consultation. 3. Repeat CBC along with electrolytes, BUN and creatinine. 4. Wean Levophed as tolerated. 5. Renal ultrasound. 6. Dietary consultation for prior bariatric surgery. MD RENETTA Yates/CHERRY /[id number]
--- NOTE | 2019-02-20 13:10 | NUR ---
patient up to bedside commode. [id number] well
--- NOTE | 2019-02-20 13:44 | Diagnostic Imaging Report ---
EXAM: Renal Ultrasound INDICATION: Pyelonephritis. COMPARISON: None TECHNIQUE: Transverse and longitudinal images of the kidneys and bladder were obtained. FINDINGS: Right Kidney: Length: 10.5 x 4.1 x 4.1 cm Appearance: Normal echogenicity. Collecting system: No hydronephrosis Stones: None Cyst/Mass: None Left Kidney: Length: 10.7 x 4.7 x 4.4 cm Appearance: Normal echogenicity. Collecting system: No hydronephrosis Stones: None Cyst/Mass: None Bladder: Unremarkable in appearance. Bilateral ureteral jets are present. IMPRESSION: Unremarkable renal ultrasound. No evidence of hydronephrosis or stone. Signed by: Dr. Phani Nicolas MD on 02/20/2019 1:41 PM
[2019-02-20] MEDS: HYDROCODONE/APAP 5MG-325MG TAB PO PRN ×2 (16:28→21:25)
--- NOTE | 2019-02-20 18:12 | NUR ---
PATIENT REQUESTED PIV X2 BE REMOVED SINCE SHE HAS A CENTRAL LINE. SHE COMPLAINS OF PAIN AT BEND OF ARM DUE TO PIV
[2019-02-20 18:55] LABS: CREATINE KINASE MB 0.8 ng/mL (0-5.0)
[2019-02-20] MEDS: ARIPIPRAZOLE 2 MG TABLET PO SCH (20:22)
[2019-02-20] MEDS: ATORVASTATIN 40 MG TAB PO SCH (20:22)
[2019-02-20] MEDS ORDERED: NON-FORMULARY MEDICATION (Aripiprazole (Abilify) 2 MG) PO SCH (21:00)
[2019-02-20] MEDS ORDERED: ATORVASTATIN 20 MG TAB PO SCH (21:00)
--- NOTE | 2019-02-20 23:49 | Consultation ---
DATE OF CONSULTATION: 02/20/2019 ID Consult. REASON FOR CONSULTATION: Fever and pyuria. Thank you Dr. Beck for asking me to see this patient. HISTORY OF PRESENT ILLNESS: The patient is a 63-year-old woman referred for fever and pyuria. She presented to emergency department with fever, rigors, and generalized body aches. She developed dysuria several days earlier. She was treated outpatient with the above treatment a day earlier and developed red eyes and throat discomfort. In the emergency department, she was noted to have temperature of 98.8 degrees Fahrenheit, pulse rate 94, respiratory rate 18, blood pressure 127/84, which later fell to 79 to 90/50 to 61. Initial laboratory study showed white blood cell count of 12,630 with 91.6% neutrophils, lactic acid 24.1 and abnormal urinalysis. Renal ultrasound showed no hydronephrosis or hydroureter. PAST MEDICAL HISTORY: Hyperlipidemia, hypothyroidism, recurrent urinary tract infection about twice a year, and depression. PAST SURGICAL HISTORY: Bariatric surgery (gastric sleeve), section 3 times, and L4-L5 lumbar fusion. ALLERGIES: BACTRIM. MEDICATIONS: The current antibiotic is meropenem 1 g IV piggyback q.8 hours. She received vancomycin earlier. IMMUNIZATIONS: She received influenza vaccine last fall. FAMILY HISTORY: Noncontributory. SOCIAL HISTORY: No tobacco or recreational drug use. She drinks alcohol (a glass of wine) occasionally. REVIEW OF SYSTEMS: As per history of present illness. The patient still has generalized body aches without pain medication. She had one episode of fever, which subsided. She still has intermittent chills. She denies alcohol, shortness of breath, nausea, vomiting, diarrhea, and constipation. She reports bilateral flank pain and dysuria. PHYSICAL EXAMINATION: GENERAL: Acutely ill. VITAL SIGNS: T-max 101.9, pulse rate 67, respiratory rate 22, blood pressure 100/60 on pressor. Weight 153 pounds. HEENT: Normocephalic. There is no icterus or injection of the conjunctivae. There is no ear or nasal discharge. Moist oral mucosa. There is no pharyngeal erythema or exudate. NECK: Supple. No meningismus. LUNGS: Good air entry bilaterally. HEART: Normal S1 and S2. Regular. ABDOMEN: Soft with mild right costovertebral angle tenderness. EXTREMITIES: There is no edema, clubbing, or cyanosis. SKIN: There is no acute erythema. TRAY CASTING MACHINE OPERATOR: Awake, alert, and oriented to person, place, and time. Nonfocal. LABORATORY AND DIAGNOSTICS: WBC 22,170, hemoglobin 11, platelets 258,000, neutrophils 90.7, lymphocytes 4.1, monocytes 4.3, eosinophils 0, and basophils 0. BUN 12, creatinine 0.7. Blood culture is pending and urine culture is also pending. IMPRESSION: 1. Sepsis with shock from urinary tract infection, present on admission. 2. Hypothyroidism. 3. Depression. PLAN: 1. Await blood and urine culture results. 2. Antibiotic will be adjusted, guided by culture results. MD MARGUERITE Giron/MODL /[id number]
[2019-02-21] VITALS (48 sets, daily range): BP systolic 81–133; BP diastolic 45–88
[2019-02-21] MEDS: NOREPINEPHRINE INJ 4MG/4ML 8 MG in DEXTROSE 5% 250ML 250 ML IV SCH ×2 (00:51→05:47)
[2019-02-21] MEDS: SODIUM CHLORIDE 0.9% 1000ML 1,000 ML IV SCH ×3 (01:00→13:35)
[2019-02-21] MEDS: ACETAMINOPHEN 325 MG TAB PO PRN ×2 (01:35→21:51)
[2019-02-21] MEDS: FAMOTIDINE 20 MG/2 ML VIAL IV SCH (04:38)
[2019-02-21] MEDS: MEROPENEM 1GM 100 ML IV SCH ×3 (04:38→20:52)
[2019-02-21 04:54] LABS: BASOPHILS % 0.1 % (0.0-1.0); EOSINOPHILS # (AUTO) 0.3 (0.0-0.4); EOSINOPHILS % 1.9 % (0.0-6.0); HEMATOCRIT 30.6 % (34.2-44.1); HEMOGLOBIN 9.9 g/dL (12.0-16.0); LYMPHOCYTES # (AUTO) 2.1 (1.0-3.2); LYMPHOCYTES % 14.7 % (18.0-39.1); MEAN CORPUSCULAR HEMOGLOBIN 27.9 pg (28-32); MEAN CORPUSCULAR HGB CONC 32.4 g/dL (31-35); MEAN CORPUSCULAR VOLUME 86.2 fL (81-99); MONOCYTES # (AUTO) 0.8 (0.2-0.8); MONOCYTES % 5.9 % (4.4-11.3); NEUTROPHILS # (AUTO) 10.8 (2.1-6.9); PLATELET COUNT 207 x10e3/uL (140-360); RED BLOOD COUNT 3.55 x10e6/uL (3.6-5.1)
[2019-02-21 05:13] LABS: ALANINE AMINOTRANSFERASE 31 IU/L (0-55); ALBUMIN 2.4 g/dL (3.5-5.0); ALKALINE PHOSPHATASE 46 IU/L (40-150); ANION GAP 9.1 mmol/L (8-16); BLOOD UREA NITROGEN 6 mg/dL (7-26); BUN/CREATININE RATIO 9 (6-25); CALCIUM 7.7 mg/dL (8.4-10.2); CARBON DIOXIDE 22 mmol/L (22-29); CHLORIDE 110 mmol/L (98-107); CHOL/HDL RATIO 2.2 (3.0-3.6); CHOLESTEROL 115 MD/DL (0-199); CREATININE, SERUM 0.66 mg/dL (0.57-1.11); EST GLOMERULAR FILTRATION RATE > 60 ML/MIN (60-); GLUCOSE 147 mg/dL (74-118); HDL CHOLESTEROL 52 MG/DL (40-60); LDL CHOLESTEROL 51 MG/DL (60-130); POTASSIUM 3.1 mmol/L (3.5-5.1); SODIUM 138 mmol/L (136-145); TRIGLYCERIDES 59 MG/DL (0-149)
--- NOTE | 2019-02-21 06:33 | NUR ---
Orders received and read back to Dr. Beck for K 3.1
[2019-02-21] MEDS: HYDROCODONE/APAP 5MG-325MG TAB PO PRN ×2 (06:35→12:12)
[2019-02-21] MEDS: POTASSIUM CHLORIDE 20 MEQ TAB CR PO STA ×2 (06:51→07:56)
[2019-02-21] MEDS: THYROID 60 MG TAB PO SCH (06:53)
[2019-02-21] MEDS ORDERED: PROZAC20 MG PO (08:12)
[2019-02-21] MEDS: BUPROPION HCL 100 MG TAB PO SCH (08:12)
[2019-02-21] MEDS: FLUOXETINE HCL 20 MG CAP PO SCH (08:15)
[2019-02-21] MEDS: FAMOTIDINE 20 MG TAB PO SCH ×2 (08:35→20:52)
[2019-02-21] MEDS ORDERED: THYROID 60 MG TAB PO SCH (09:00)
[2019-02-21] MEDS: ONDANSETRON HCL 4 MG ORAL DISINTEGRATING TAB PO PRN (12:12)
--- NOTE | 2019-02-21 12:43 | NUR ---
Nutrition Screen Note RD Recommendation for Physician: -Continue ADA 1800 diet as ordered Plan of Care: RD following, monitoring for tolerance and adequacy Nutrition reason for involvement: MD Consult prior bariatric surgery Primary Diagnose(s): sepsis from UTI PMH: Bariatric surgery (5 years ago), HLD, hypothyroidism, recurrent UTI Ht: 62in Wt: 195.31lb BMI: 35.7kg/m2 IBW: 110lb RD Assessment: (02/21) Chart reviewed. Labs and meds reviewed. 63yo F, who was admitted for dysuria, chills, nausea, and malaise. Visited pt in the room. Pt reported good appetite but had some nausea this afternoon (Zofran was given) and didnt feel like eating lunch. No vomiting episode reported. Pt denied any chewing or swallowing difficulty. 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 Pt was eating/drinking well at home. Will continue to monitor and follow. Current Diet: ADA 1800 Malnutrition Evaluation (02/21) The patient does not meet criteria for a specified degree of malnutrition at this time. Will re-evaluate at follow-up as appropriate. Diet Education Needs Assessment: Diet education not indicated. Nutrition Care Level: low Signed: Odalys Morgan, MS, RD, LD
--- NOTE | 2019-02-21 12:48 | Progress Note ---
DATE: SUBJECTIVE: The patient reports some headache and neck stiffness. She states this is new. She had low potassium and was replaced this morning. Levophed has been decreased to 5 mcg. PHYSICAL EXAMINATION: VITAL SIGNS: The patient is afebrile. The blood pressure is 96/64 and the saturation is 98%. The pulse is 68. HEENT: Shows no facial swelling or erythema. The nasal mucosa is normal. The oropharynx is normal. LYMPHATIC: Shows no submandibular, cervical or supraclavicular adenopathy. NECK: Shows no JVD or thyromegaly. There is no nuchal rigidity. CARDIAC: Reveals regular rate and rhythm with a normal S1, S2. There are no murmurs or rubs. LUNGS: Auscultation of lungs shows clear breath sounds bilaterally. There is no wheezing. ABDOMEN: Soft, nontender. There is no rebound or guarding. EXTREMITIES: Show no leg edema or calf tenderness. There is no cyanosis or clubbing. SKIN: Shows no rashes. LABORATORY DATA: Potassium is 3.1 and the BUN to creatinine ratio is normal. The other electrolytes are within normal limits. White blood cell count is decreased to 13.9 and hemoglobin is 9.9. Platelet count is 207. MICROBIOLOGY DATA: Cultures so far are negative. IMPRESSION: 1. Urinary tract infection with severe sepsis, present on admission. 2. Hypokalemia. 3. Prior bariatric surgery. 4. Anemia, unspecified. 5. Hypothyroidism. PLAN: 1. Continue current antibiotics and await culture results. 2. Wean Levophed as tolerated. 3. CT scan of head due to new onset headache. 4. Replace potassium as needed. 5. Await dietary consultation. Case discussed with the patient, nursing staff. Greater than 35 minutes in direct critical care time. Jamie Beck MD LM/CHERRY /[id number]
--- NOTE | 2019-02-21 13:47 | NUR ---
LEVOPHED TITRATED OFF
--- NOTE | 2019-02-21 14:08 | Diagnostic Imaging Report ---
EXAMINATION: Head CT HISTORY: Headache, UTI sepsis COMPARISON: None. TECHNIQUE: Multidetector axial images were obtained without contrast from the foramen magnum to the vertex . The images were reconstructed using brain and bone algorithms. Thin section brain images were reformatted into coronal and sagittal planes. Image quality: Motion/streaking artifact limits the evaluation of the skull base and posterior cranial fossa. Dose modulation, iterative reconstruction, and/or weight based adjustment of the mA/kV was utilized to reduce the radiation dose to as low as reasonably achievable. FINDINGS: Parenchyma: 1. No abnormal densities. 2. No mass or hemorrhage. No CT evidence of acute territorial vascular insult. Extra-axial spaces:No abnormal density. No extra-axial fluid collections Brain volume: Normal for age. Ventricles: No hydrocephalus or displacement. Arteries: No density suggestive of thrombus. Dural sinuses: No abnormal density. Extra-axial spaces: No abnormal density. Foramen magnum: No mass, Chiari malformation, or basilar invagination. Sella: No obvious mass. Paranasal/mastoid sinuses: Imaged portions unremarkable. Skull/Scalp: No lytic or blastic lesions. No fractures. IMPRESSION: No intracranial abnormalities. Signed by: Dr. Ariella Javed M.D. on 02/21/2019 2:04 PM
--- NOTE | 2019-02-21 19:57 | NUR ---
URINE CULTURE, PER STRAIGHT CATHETERIZATION, SENT TO LAB
[2019-02-21] MEDS: ATORVASTATIN 40 MG TAB PO SCH (20:52)
[2019-02-21] MEDS: ARIPIPRAZOLE 2 MG TABLET PO SCH (20:52)
[2019-02-22] VITALS (24 sets, daily range): BP systolic 91–119; BP diastolic 61–80
[2019-02-22] MEDS: MEROPENEM 1GM 100 ML IV SCH ×3 (05:12→20:23)
[2019-02-22 05:24] LABS: BASOPHILS % 0.2 % (0.0-1.0); EOSINOPHILS # (AUTO) 0.3 (0.0-0.4); HEMATOCRIT 30.2 % (34.2-44.1); HEMOGLOBIN 9.8 g/dL (12.0-16.0); LYMPHOCYTES # (AUTO) 2.3 (1.0-3.2); LYMPHOCYTES % 44.4 % (18.0-39.1); MEAN CORPUSCULAR HEMOGLOBIN 27.9 pg (28-32); MEAN CORPUSCULAR HGB CONC 32.5 g/dL (31-35); MONOCYTES # (AUTO) 0.3 (0.2-0.8); NEUTROPHILS # (AUTO) 2.3 (2.1-6.9); NEUTROPHILS % 44.2 % (38.7-80.0); PLATELET COUNT 172 x10e3/uL (140-360); RED BLOOD COUNT 3.51 x10e6/uL (3.6-5.1); RED CELL DISTRIBUTION WIDTH 15.6 % (11.7-14.4)
[2019-02-22 05:56] LABS: ALANINE AMINOTRANSFERASE 35 IU/L (0-55); ALBUMIN 2.3 g/dL (3.5-5.0); ALBUMIN/GLOBULIN RATIO 0.9 (0.8-2.0); ALKALINE PHOSPHATASE 39 IU/L (40-150); ANION GAP 6.6 mmol/L (8-16); BLOOD UREA NITROGEN 6 mg/dL (7-26); BUN/CREATININE RATIO 10 (6-25); CALCIUM 8.4 mg/dL (8.4-10.2); CARBON DIOXIDE 29 mmol/L (22-29); CHLORIDE 110 mmol/L (98-107); EST GLOMERULAR FILTRATION RATE > 60 ML/MIN (60-); GLUCOSE 88 mg/dL (74-118); POTASSIUM 3.6 mmol/L (3.5-5.1); SODIUM 142 mmol/L (136-145)
[2019-02-22] MEDS: THYROID 60 MG TAB PO SCH (07:37)
--- NOTE | 2019-02-22 07:37 | NUR ---
pt resting in bed, no c/o pain or s/s distress at this time. pt requesting thyroid medication to be given now "so she can be fasting". will continue to monitor
[2019-02-22] MEDS: ACETAMINOPHEN 325 MG TAB PO PRN (08:12)
[2019-02-22] MEDS: FLUOXETINE HCL 20 MG CAP PO SCH (08:13)
[2019-02-22] MEDS: FAMOTIDINE 20 MG TAB PO SCH ×2 (08:13→20:23)
[2019-02-22] MEDS: BUPROPION HCL 100 MG TAB PO SCH (08:13)
[2019-02-22] MEDS: NOREPINEPHRINE INJ 4MG/4ML 8 MG in DEXTROSE 5% 250ML 250 ML IV SCH (10:30)
[2019-02-22] MEDS ORDERED: SOD CHL 0.45%/POT CHL 20MEQ 1,000 ML IV ONE (13:15)
[2019-02-22] MEDS ORDERED: BISACODYL 5 MG TAB EC PO ONE (13:30)
--- NOTE | 2019-02-22 19:00 | NUR ---
Bedside report received from Hortencia ANDERSON. Pt found resting in bed AAOx4, care plan reviewed. Pt reports no pain or discomfort at this time. No signs of distress noted at this time.
[2019-02-22] MEDS: ARIPIPRAZOLE 2 MG TABLET PO SCH (20:23)
[2019-02-22] MEDS: ATORVASTATIN 40 MG TAB PO SCH (20:23)
[2019-02-23] VITALS (17 sets, daily range): BP systolic 93–128; BP diastolic 54–81
[2019-02-23] MEDS: MEROPENEM 1GM 100 ML IV SCH ×2 (05:12→14:18)
[2019-02-23] MEDS: ACETAMINOPHEN 325 MG TAB PO PRN (06:48)
[2019-02-23] MEDS: ONDANSETRON HCL 4 MG ORAL DISINTEGRATING TAB PO PRN (06:48)
[2019-02-23] MEDS: FLUOXETINE HCL 20 MG CAP PO SCH (08:26)
[2019-02-23] MEDS: THYROID 60 MG TAB PO SCH (08:26)
[2019-02-23] MEDS: BUPROPION HCL 100 MG TAB PO SCH (08:26)
[2019-02-23] MEDS: FAMOTIDINE 20 MG TAB PO SCH (08:26)
[2019-02-23] MEDS: HYDROCODONE/APAP 5MG-325MG TAB PO PRN (08:28)
--- NOTE | 2019-02-23 15:26 | Discharge Summary ---
DISCHARGE MEDICATIONS: 1. Abilify 2 mg p.o. at bedtime. 2. Lipitor 40 mg p.o. at bedtime. 3. Bupropion 100 mg p.o. daily. 4. Prozac 20 mg p.o. daily. 5. [place] Thyroid 60 mg p.o. daily. 6. Levaquin 500 mg p.o. daily. DISCHARGE DIAGNOSES: 1. Pyelonephritis with severe sepsis, present on admission. 2. Hypokalemia. 3. Anemia, unspecified. 4. Hypothyroidism. 5. Overweight. HISTORY OF PRESENT ILLNESS: The patient is a 63-year-old woman with a history of prior bariatric surgery. She has a history of prior urinary tract infections. She came in with some burning on urination and some urinary frequency. In the ER, she was found to have a low blood pressure. HOSPITAL COURSE: The patient was admitted. She received IV fluids and antibiotics. She had further decrease in her blood pressure. She required a central line and Levophed and was sent to the ICU. Over the next couple of days, her blood pressure improved. She was weaned off the Levophed and her blood pressure stabilized at 110/68. She felt much better. Her urine cultures were negative, although she did have pyuria. The patient was seen by Infectious Disease in consultation. The patient was also seen by Urology. Urology recommended completing her course of antibiotics and then having a followup in the office for urodynamics and a cystoscopy. DISPOSITION: The patient will be discharged home. She will complete her antibiotics and will follow up with Dr. Vaca as well as her primary care physician, Dr. Khan. MD RENETTA Yates/CHERRY /[id number]
--- NOTE | 2019-02-23 15:37 | NUR ---
Per Dr Hal Beck, patient to transfer to home and verbalized understanding to follow up with Dr Culver. Paper Rx given. Rodolfo from Pharmacy provided discharge teaching.
--- NOTE | 2019-02-24 17:31 | Consultation ---
DATE OF CONSULTATION: 02/23/2019 Urology Consultation Consultation was called by Dr. Beck. CHIEF UROLOGIC COMPLAINT/REASON FOR CONSULTATION: Urinary tract infection. HISTORY OF PRESENT ILLNESS: Ms. Kenney is a 63-year-old female patient with multiple chronic urinary tract infections. She has at least 4 this year. Denied gross hematuria. Denied fevers currently. Positive incontinence. PAST SURGICAL HISTORY: Notable for bariatric surgery, C-sections, lumbar L4-5 spine surgery. MEDICATIONS: Please see MAR. ALLERGIES: BACTRIM. SOCIAL HISTORY: Denied smoking or drinking. FAMILY HISTORY: Denied urologic stones or malignancies. REVIEW OF SYSTEMS: Noncontributory other than problems mentioned above. PHYSICAL EXAMINATION: GENERAL: Middle-aged female, in no distress currently. VITAL SIGNS: Temperature 98, pulse 61, respirations 19, blood pressure 112/79. HEENT: Sclerae anicteric. NECK: Supple. BACK: Without costovertebral tenderness bilaterally. ABDOMEN: Soft. It is nontender. It is nondistended. There is no palpable mass. No palpable hernias. No palpable adenopathy. : Normal female external genitalia. EXTREMITIES: No edema. NEUROLOGIC: Moves 4 extremities. PSYCH: Alert. Mood appropriate. SKIN: Intact. Normal color. PERTINENT LABORATORY DATA: Renal ultrasound was normal. Sodium 142, potassium 3.6, chloride 110, bicarb 29, BUN 6, creatinine 0.6, glucose 68. Hemoglobin 9.8, hematocrit 30, platelet count 172,000, white cell count 5200. PT of 13, PTT of 26.8. Urinalysis, greater than 50 whites, 6-10 reds. IMPRESSION: 1. Pyelonephritis. 2. Multiple chronic urinary tract infections, recurrent, complicated. 3. Microscopic hematuria. 4. Anemia. 5. Coagulopathy. PLAN: The patient may be safely discharged on culture-specific antibiotics. We would recommend followup in my clinic for an outpatient cystoscopy to definitively look up the etiology for pyelonephritis. Thank you for allowing me to participate in the care of your patient. I will be happy to follow along with you. MD BOBBY Greene/ELENAL /[id number] cc: Jamie Beck MD
== END 2019-02-23 18:12 | disposition home or self-care (01) | DRG 871 ==
LOC: ER 01:03 → ERHOLD 04:08 → ICU 11:02
PROVIDERS: ADMIT Internal Medicine Critical Care Medicine; ATTEND Internal Medicine Critical Care Medicine
DX: A41.9 Sepsis, unspecified organism (principal); R65.21 Severe sepsis with septic shock; N12 Tubulo-interstitial nephritis, not specified as acute or chronic; E87.6 Hypokalemia; E03.9 Hypothyroidism, unspecified; D64.9 Anemia, unspecified; Z98.84 Bariatric surgery status; F32.9 Major depressive disorder, single episode, unspecified
CPT/HCPCS: 36415; 36555; 70450; 71045; 76770; 80053; 80061; 81001; 82550; 82553; 83518; 83605; 83735; 84484; 85025; 85610; 85730; 87040; 87070; 87086; 87400; 93005; 93306; 99285; J1720; J2185; J2405; J3370; J3480; J7030; J7050

== ENCOUNTER 2024-12-23 19:55 | Emergency (ER) | payer MEDICARE ==
[~2024-12-23] VITALS: Ht 157.5 cm; Wt 65.8 kg
[~2024-12-23 19:55] MED LIST: ABILIFY5 MG PO; ARMOUR THYROID60 MG PO; ATORVASTATIN CA20 MG PO; BUPROPION HCL100 MG PO; PROZAC20 MG PO
[2024-12-23] MEDS ORDERED: SODIUM CHLORIDE FLUSH 10 ML SYR IV PRN (20:00)
[2024-12-23 20:18] LABS: BASOPHILS % 0.2 % (0.0-1.0); EOSINOPHILS # (AUTO) 0.1 (0.0-0.4); EOSINOPHILS % 0.8 % (0.0-6.0); HEMATOCRIT 41.1 % (34.2-44.1); HEMOGLOBIN 13.6 g/dL (12.0-16.0); LYMPHOCYTES # (AUTO) 4.2 (1.0-3.2); LYMPHOCYTES % 36.6 % (18.0-39.1); MEAN CORPUSCULAR HEMOGLOBIN 28.2 pg (28-32); MEAN CORPUSCULAR HGB CONC 33.1 g/dL (31-35); MEAN CORPUSCULAR VOLUME 85.3 fL (81-99); MONOCYTES # (AUTO) 0.8 (0.2-0.8); MONOCYTES % 6.9 % (4.4-11.3); NEUTROPHILS # (AUTO) 6.4 (2.1-6.9); NEUTROPHILS % 54.9 % (38.7-80.0); PLATELET COUNT 349 x10e3/uL (140-360); RED BLOOD COUNT 4.82 x10e6/uL (3.6-5.1); RED CELL DISTRIBUTION WIDTH 13.4 % (11.7-14.4); WHITE BLOOD COUNT 11.58 x10e3/uL (4.8-10.8)
[2024-12-23 20:41] VITALS: BP 126/80; PULSE 64
[2024-12-23 20:42] LABS: CLARITY,URINE CLEAR (CLEAR); COLOR,URINE YELLOW (YELLOW)
[2024-12-23 20:43] LABS: BILIRUBIN,URINE NEGATIVE (NEGATIVE); GLUCOSE, URINE NEGATIVE (NEGATIVE); KETONES,URINE NEGATIVE (NEGATIVE); LEUKOCYTE ESTERASE ,URINE NEGATIVE (NEGATIVE); NITRITE,URINE NEGATIVE (NEGATIVE); PH,URINE 6 (5 - 7); PROTEIN,URINE DIPSTICK NEGATIVE (NEGATIVE); URINE UROBILINOGEN 0.2 mg/dL (0.2 - 1)
[2024-12-23 20:44] LABS: ALANINE AMINOTRANSFERASE 28 IU/L (0-55); ALBUMIN 3.7 g/dL (3.5-5.0); ALBUMIN/GLOBULIN RATIO 1.2 (0.8-2.0); ALKALINE PHOSPHATASE 70 IU/L (40-150); ANION GAP 13.9 mmol/L (8-16); BILIRUBIN,TOTAL 0.4 mg/dL (0.2-1.2); BLOOD UREA NITROGEN 14 mg/dL (7-26); BUN/CREATININE RATIO 16 (6-25); CARBON DIOXIDE 25 mmol/L (22-29); CHLORIDE 100 mmol/L (98-107); CREATININE, SERUM 0.86 mg/dL (0.57-1.11); EST GLOMERULAR FILTRATION RATE 74 ML/MIN (>=60); GLUCOSE 88 mg/dL (74-118); POTASSIUM 3.9 mmol/L (3.5-5.1); SODIUM 135 mmol/L (136-145); TOTAL PROTEIN 6.8 g/dL (6.5-8.1)
[2024-12-23 20:53] LABS: TROPONIN I < 0.001 ng/mL (0-0.300)
[2024-12-23 20:58] LABS: EPITHELIAL CELLS,URINE FEW /LPF; RBC,URINE 0-5 /HPF (0-5); WBC,URINE (MAN) 0-5 /HPF (0-5)
[2024-12-23] MEDS: SODIUM CHLORIDE 0.9% 1000ML 1,000 ML IV ONE (21:00)
[2024-12-23 23:45] VITALS: PULSE 62; RESP 16; TEMP 97.8; O2SAT 97
== END 2024-12-23 23:46 | disposition home or self-care (01) ==
LOC: ER 20:05
DX: R42 Dizziness and giddiness (principal); E86.1 Hypovolemia; E78.5 Hyperlipidemia, unspecified; E03.9 Hypothyroidism, unspecified; F32.A Depression, unspecified
CPT/HCPCS: 36415; 71045; 80053; 81001; 83880; 84484; 85025; 93005; 94760; 99284; J7030